=== PATIENT | female | born 1955 | race Caucasian/White ===

== ENCOUNTER → 2020-05-22 | Outpatient (CLI) | payer OTHER ==
--- NOTE | 2020-05-22 11:32 | Diagnostic Imaging Report ---
EXAMINATION: Lumbar spine at 1105 INDICATION: Back pain AP, lateral and spot lateral views were obtained. There are no prior studies available for comparison. The lateral view shows the vertebral body heights and alignment to be generally within normal limits. There is mild narrowing of the disc space at L4-L5. The other intervertebral spaces are well-maintained. There is no fracture or acute bony abnormality evident. There is no sign of a paraspinal mass. There is mild symmetrical sclerosis of the sacroiliac joints. IMPRESSION: 1. There is no evidence for an acute bony abnormality. 2. There is mild degenerative disc disease at L4-L5. 3. If clinical concern regarding an underlying persists and further imaging is desired, then MRI would be recommended. Dictated by: Dictated on workstation # [id number]
--- NOTE | 2020-05-22 11:35 | Diagnostic Imaging Report ---
EXAMINATION: Cervical spine at 11:01h. INDICATION: Neck pain AP, lateral and odontoid views were obtained. There are no prior studies available for comparison. The lateral view shows the vertebral body heights and alignment to be generally within normal limits. The intervertebral spaces are fairly well maintained with the exception of C7-T1. The disc space at this level is moderately narrowed. There is no fracture or acute bony abnormality evident. There is no sign of retropharyngeal edema. The lung apices are clear. IMPRESSION: 1. There is no evidence for an acute bony abnormality. 2. There is degenerative disc disease at C7-T1. 3. If there is clinical concern regarding spinal stenosis or nerve root encroachment, then MRI would be recommended for further evaluation. Dictated by: Dictated on workstation # [id number]
== END ==
LOC: RAD 10:16
PROVIDERS: ATTEND Family Medicine
DX: Z02.71 Encounter for disability determination (principal); M50.33 Other cervical disc degeneration, cervicothoracic region; M51.36 Other intervertebral disc degeneration, lumbar region
CPT/HCPCS: 72040; 72100